=== PATIENT | male | born 1985 | race African-American/Black ===

== ENCOUNTER 2019-06-12 15:55 | Inpatient (IN) | payer OTHER ==
[2019-06-12 20:26] VITALS: BMI 28.2
--- NOTE | 2019-06-12 22:47 | HP ---
CIWA Score Nausea/Vomitin Muscle Tremors: 1-None Visible, but [place] Anxiety: 4-Mod. Anxious/Guarded Agitation: 4-Moderately Restless Paroxysmal Sweats: 3 Orientation: 2-Disoriented Date<2 days Tacttile Disturbances: 3-Moderate Itch/Numb/Burn Auditory Disturbances: 1-Very Mild Visual Disturbances: 1-Very Mild Sensitivity Headache: 3-Moderate CIWA-Ar Total Score: 27 - Admission Criteria OASAS Guidelines: Admission for Medically Managed Detox: Requires at least one of the followin. CIWA greater than 12 2. Seizures within the past 24 hours 3. Delirium tremens within the past 24 hours 4. Hallucinations within the past 24 hours 5. Acute intervention needed for co occurring medical disorder 6. Acute intervention needed for co occurring psychiatric disorder 7. Severe withdrawal that cannot be handled at a lower level of care (continued vomiting, continued diarrhea, abnormal vital signs) requiring intravenous medication and/or fluids 8. Patient presents the following: CIWA greater than 12 Admission Criteria Met: Admission criteria met Admission ROS [facility] Chief Complaint: C/O WITHDRAWAL SX'S Allergies/Adverse Reactions: Allergies Allergy/AdvReac Type Severity Reaction Status Date / Time No Known Allergies Allergy Verified 06/12/19 20:15 History of Present Illness: 33 Y.O. MALE WITH ALCOHOLISM HERE FOR DETOX. CLIENT IS REFERRED BY [facility]. PRESENTS WITH C/O WITHDRAWAL SX'S. 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 REPORTS DAILY INTAKE OF ALCOHOL. LAST USE 2 DAYS AGO. REPORTS HE ALSO SUFFERED A SEIZURE 2 DAYS AGO- WITNESSED BY ON LOOKERS. EMS CALLED BY BYSTANDERS BUT PATIENT STATES HE LEFT THE SCENE ONCE HE REALIZED WHAT HAPPENED. HE STATES THIS WAS HIS FIRST SEIZURE. ALSO REPORTS HX/O NOSE BLEEDS. DID NOT F/U WITH MEDICAL. [facility] ALCOHOL HX/O SINCE THE AGE OF 17. DENIES ANY SIGNIFICANT PERIOD OF CLEAN TIME. +WITHDRAWAL SZ, BLACK OUTS, AVH WHEN INTOXICATED. PRESENTLY DENIES SI/HI/AVH. LIVE IN [facility] RESIDENTIAL, UNEMPLOYED, DENIES LEGALS Exam Limitations: No Limitations - Ebola screening Have you traveled outside of the country in the last 21 days: No Have you had contact with anyone from an Ebola affected area: No Have you been sick,other than usual withdrawal symptoms: No Do you have a fever: No - Review of Systems Constitutional: Chills, Loss of Appetite, Night Sweats, Changes in sleep EENT: reports: Dental Problems (GUM AND DENTAL PAIN) Respiratory: reports: No Symptoms reported Cardiac: reports: No Symptoms Reported GI: reports: Nausea, Poor Appetite, Poor Fluid Intake, Vomiting, Abdominal cramping : reports: No Symptoms Reported Musculoskeletal: reports: Back Pain, Joint Pain, Neck Pain Integumentary: reports: No Symptoms Reported Neuro: reports: Headache, Seizure, Tremors (FELT) Endocrine: reports: No Symptoms Reported Hematology: reports: No Symptoms Reported Psychiatric: reports: Orientated x3, Agitated (IRRITABLE), Anxious, Depressed ( DENIES SI) Other Systems: Reviewed and Negative Patient History - Patient Medical History Hx Anemia: No Hx Asthma: No Hx Chronic Obstructive Pulmonary Disease (COPD): No Hx Cancer: No Hx Cardiac Disorders: No Hx Congestive Heart Failure: No Hx Hypertension: Yes (NON COMPLAINT WITH MEDS) Hx Hypercholesterolemia: No Hx Pacemaker: No HX Cerebrovascular Accident: No Hx Seizures: Yes (LAST EPISODE 2 DAYS AGO) Hx Dementia: No Hx Diabetes: No Hx Gastrointestinal Disorders: No Hx Liver Disease: No Hx Genitourinary Disorders: No Hx Sexually Transmitted Disorders: No Hx Renal Disease (ESRD): No Hx Thyroid Disease: No Hx Human Immunodeficiency Virus (HIV): No Hx Hepatitis C: No Hx Depression: Yes Hx Suicide Attempt: Yes (LAST YEAR BY HANGING SELF) Hx Bipolar Disorder: Yes Hx Schizophrenia: Yes (SCHIZOAFFECTIVE) Other Medical History: NON COMPLAINT WITH PSYCH MEDS - Patient Surgical History Past Surgical History: No - PPD History Previous Implant?: Yes Documented Results: Negative w/o proof Implanted On Prior [facility] Admission?: No PPD to be Administered?: Yes - Smoking Cessation Smoking history: Current every day smoker Have you smoked in the past 12 months: Yes Aproximately how many cigarettes per day: 10 Hx Chewing Tobacco Use: No Initiated information on smoking cessation: Yes 'Breaking Loose' booklet given: 06/12/19 - Substance & Tx. History Hx Alcohol Use: Yes Hx Substance Use: Yes Substance Use Type: Alcohol Hx Substance Use Treatment: No - Substances abused Alcohol Substance route: Oral Frequency: Daily Amount used: 2 pints of vodka, or 3 or 4 pints. Age of first use: 16 Date of last use: 06/10/19 Cocaine Frequency: 3-6 times per week Amount used: half a gram to a gram Age of first use: 18 Date of last use: 06/02/19 Marijuana/Hashish Substance route: Smoking Frequency: Daily Amount used: 1 stick Age of first use: 15 Date of last use: 06/10/19 Family Disease History - Family Disease History Family Disease History: Other: Mother ( BY SUICIDE), Sister ( BY SUICIDE) Admission Physical Exam [facility] - Vital Signs Vital Signs: Vital Signs - 24 hr 06/12/19 20:12 Temperature 97.7 F Pulse Rate 102 H Respiratory 18 Rate Blood Pressure 167/105 H - Physical General Appearance: Yes: Mild Distress, Irritable, Anxious HEENTM: Yes: EOMI, Normocephalic, Normal Voice, [place], Pharynx Normal Respiratory: Yes: Chest Non-Tender, Lungs Clear, Normal Breath Sounds, No Respiratory Distress, No Accessory Muscle Use Neck: Yes: No masses,lesions,Nodules, Supple, Trachea in good position Breast: Yes: Breast Exam Deferred Cardiology: Yes: Regular Rhythm, Regular Rate, S1, S2 Abdominal: Yes: Normal Bowel Sounds, Non Tender, Soft Genitourinary: Yes: Within Normal Limits Back: Yes: Normal Inspection Musculoskeletal: Yes: full range of Motion, Gait Steady Extremities: Yes: Normal Capillary Refill, Normal Range of Motion, Non-Tender Neurological: Yes: Fully Oriented, Alert, Motor Strength 5/5, Depressed Affect Integumentary: Yes: Dry, Warm Lymphatic: Yes: Within Normal Limits - Diagnostic (1) Alcohol dependence with uncomplicated withdrawal Current Visit: Yes Status: Acute (2) Cocaine abuse Current Visit: Yes Status: Chronic (3) HTN (hypertension) Current Visit: Yes Status: Chronic Qualifiers: Hypertension type: essential hypertension Qualified Code(s): I10 - Essential (primary) hypertension (4) Non compliance with medical treatment Current Visit: Yes Status: Suspected (5) Nicotine dependence Current Visit: Yes Status: Chronic Qualifiers: Nicotine product type: cigarettes Substance use status: uncomplicated Qualified Code(s): F17.210 - Nicotine dependence, cigarettes, uncomplicated (6) Homeless Current Visit: Yes Status: Suspected (7) Withdrawal seizures Current Visit: Yes Status: Acute Qualifiers: Complication of substance-induced condition: uncomplicated Qualified Code(s ): F19.230 - Other psychoactive substance dependence with withdrawal, uncomplicated; R56.9 - Unspecified convulsions (8) Psychiatric disorder Current Visit: Yes Status: Chronic Cleared for Admission S - Detox or Rehab [facility] Level of Care: Medically Managed Detox Regimen/Protocol: Librium Claeared for Rehab Admission: No Breathalyzer - Breathalyzer Breathalyzer: 0 Urine Drug Screen - Test Device Lot number: [id number] Expiration date: 03/15/21 - Control Is test valid?: Yes - Results Drug screen NEGATIVE: Yes Inpatient Rehab Admission - Rehab Decision to Admit Inpatient rehab admission?: No
[2019-06-12] MEDS ORDERED: DICYCLOMINE HCL 10 MG CAPSULE PO PRN (22:55)
[2019-06-12] MEDS ORDERED: BISMUTH SUBSALICYLATE 524 MG/30 ML UD PO PRN (22:55)
[2019-06-12] MEDS ORDERED: MAGNESIUM CITRATE 300 ML BOTTLE PO PRN (22:55)
[2019-06-12] MEDS ORDERED: MAGNESIUM HYDROX 2400MG/30ML ORAL SUSPENSION 30 ML CUP PO PRN (22:55)
[2019-06-12] MEDS ORDERED: hydrOXYzine HCL 25 MG TABLET (FP) PO PRN (22:55)
[2019-06-12] MEDS ORDERED: chlordiazePOXIDE HCL 25 MG CAPSULE PO PRN (22:55)
[2019-06-12] MEDS ORDERED: ACETAMINOPHEN 325 MG TABLET (FP) PO PRN ×2 (22:55)
[2019-06-12] MEDS ORDERED: guaiFENesin 200 MG/10 ML 10 ML UNIT-DOSE CUPS PO PRN (22:55)
[2019-06-12] MEDS ORDERED: MAG HYDROX/AL HYDROX/SIMETH 30 ML UNIT-DOSE CUP PO PRN (22:55)
[2019-06-12] MEDS ORDERED: IBUPROFEN 400 MG TABLET (FP) PO PRN (22:55)
[2019-06-12] MEDS ORDERED: MENTHOL/PHENOL 1 EACH UD MM PRN (22:55)
[2019-06-12] MEDS ORDERED: ONDANSETRON *ODT* 4 MG TABLET SL PRN (22:55)
[2019-06-12] MEDS ORDERED: P-EPHED 60MG/TRIPROLIDI 2.5MG TABLET PO PRN (22:55)
[2019-06-12] MEDS ORDERED: cloNIDine HCL 0.1 MG TABLET PO PRN (23:02)
[2019-06-13] MEDS: chlordiazePOXIDE HCL 25 MG CAPSULE PO SCH ×5 (00:34→22:40)
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
--- NOTE | 2019-06-13 10:34 | EKG ---
Test Reason : Blood Pressure : / mmHG Vent. Rate : 076 BPM Atrial Rate : 076 BPM P-R Int : 158 ms QRS Dur : 104 ms QT Int : 388 ms P-R-T Axes : 055 010 022 degrees QTc Int : 436 ms NORMAL SINUS RHYTHM NORMAL ECG NO PREVIOUS ECGS AVAILABLE Confirmed by JUNITO RUBIO, BRITTANY ([id number]) on 06/13/2019 10:33:47 AM Referred By: EDILMA MENESES Confirmed By:BRITTANY WILD MD
[2019-06-13] MEDS: PRENATAL VITAMINS W/ FOLIC ACID TABLET (FP) PO SCH (10:42)
[2019-06-13] MEDS: NICOTINE 14 MG/24 HOURS TOPICAL PATCH TD SCH (10:43)
[2019-06-13 11:43] LABS: HEMATOCRIT 48.4 % (35.4-49); HEMOGLOBIN 16.2 GM/dL (11.7-16.9); MCH 30.2 pg (25.7-33.7); MCHC 33.5 g/dl (32.0-35.9); MEAN CELL VOLUME 90.3 fl (80-96); MEAN PLT VOLUME 9.1 fl (7.5-11.1); PLATELET COUNT 157 K/MM3 (134-434); RBC 5.36 M/mm3 (4.00-5.60); WHITE BLOOD COUNT 5.4 K/mm3 (4.0-10.0)
--- NOTE | 2019-06-13 11:44 | PN ---
S CIWA - CIWA Score Nausea/Vomitin-No Nausea/No Vomiting Muscle Tremors: 4-Moderate,w/Arms Extend Anxiety: 4-Mod. Anxious/Guarded Agitation: 4-Moderately Restless Paroxysmal Sweats: No Perspiration Orientation: 0-Oriented Tacttile Disturbances: 0-None Auditory Disturbances: 0-None Visual Disturbances: 0-None Headache: 0-None Present CIWA-Ar Total Score: 12 BHS Progress Note (SOAP) Subjective: sweats shakes interrupted sleep body aches nausea Objective: 06/13/19 12:00 Vital Signs Temperature 98.4 F 06/13/19 09:38 Pulse Rate 89 06/13/19 09:38 Respiratory Rate 18 06/13/19 09:38 Blood Pressure 126/74 06/13/19 09:38 O2 Sat by Pulse Oximetry (%) Laboratory Tests 06/13/19 06/13/19 07:30 07:30 WBC 5.4 RBC 5.36 Hgb 16.2 Hct 48.4 MCV 90.3 MCH 30.2 MCHC 33.5 RDW 16.0 H Plt Count 157 MPV 9.1 Sodium 137 Potassium 3.6 Chloride 99 Carbon Dioxide 30 Anion Gap 8 BUN 9.1 Creatinine 0.8 Est GFR (CKD-EPI)AfAm 137.96 Est GFR (CKD-EPI)NonAf 119.03 Random Glucose 95 Calcium 9.8 Total Bilirubin 1.5 H AST 30 ALT 33 Alkaline Phosphatase 89 Total Protein 7.8 Albumin 3.8 labs noted aaox3 ambulating no acute distress Assessment: 06/13/19 12:00 withdrawal sx Plan: continue detox increase fluids
[2019-06-13 11:53] LABS: ALBUMIN 3.8 g/dl (3.4-5.0); BILIRUBIN,TOTAL 1.5 mg/dL (0.2-1); BLOOD UREA NITROGEN 9.1 mg/dL (7-18); CALCIUM 9.8 mg/dL (8.5-10.1); CREATININE 0.8 mg/dL (0.55-1.3); POTASSIUM 3.6 mmol/L (3.5-5.1); TOT PROT 7.8 g/dl (6.4-8.2)
[2019-06-13] MEDS: NICOTINE POLACRILEX 2 MG GUM BUC PRN ×2 (18:04→22:43)
[2019-06-13] MEDS: THIAMINE HCL 100 MG TABLET (FP) PO SCH (22:40)
[2019-06-14] MEDS: MELATONIN 5 MG TABLETS PO PRN ×2 (00:34→22:15)
[2019-06-14] MEDS: chlordiazePOXIDE HCL 25 MG CAPSULE PO SCH ×4 (05:40→22:15)
[2019-06-14] MEDS: NICOTINE POLACRILEX 2 MG GUM BUC PRN ×6 (05:41→23:02)
[2019-06-14] MEDS: NICOTINE 14 MG/24 HOURS TOPICAL PATCH TD SCH (10:12)
[2019-06-14] MEDS: PRENATAL VITAMINS W/ FOLIC ACID TABLET (FP) PO SCH (10:12)
--- NOTE | 2019-06-14 10:54 | PN ---
S CIWA - CIWA Score Nausea/Vomitin-No Nausea/No Vomiting Muscle Tremors: 3 Anxiety: 2 Agitation: 3 Paroxysmal Sweats: 2 Orientation: 0-Oriented Tacttile Disturbances: 0-None Auditory Disturbances: 0-None Visual Disturbances: 0-None Headache: 0-None Present CIWA-Ar Total Score: 10 S Progress Note (SOAP) Subjective: sweats interrupted sleep body aches Objective: 06/14/19 10:53 Vital Signs Temperature 97.2 F L 06/14/19 09:37 Pulse Rate 97 H 06/14/19 09:37 Respiratory Rate 17 06/14/19 09:37 Blood Pressure 143/96 06/14/19 09:37 O2 Sat by Pulse Oximetry (%) Laboratory Tests 06/13/19 06/13/19 06/13/19 07:30 07:30 07:30 WBC 5.4 RBC 5.36 Hgb 16.2 Hct 48.4 MCV 90.3 MCH 30.2 MCHC 33.5 RDW 16.0 H Plt Count 157 MPV 9.1 Sodium 137 Potassium 3.6 Chloride 99 Carbon Dioxide 30 Anion Gap 8 BUN 9.1 Creatinine 0.8 Est GFR (CKD-EPI)AfAm 137.96 Est GFR (CKD-EPI)NonAf 119.03 Random Glucose 95 Calcium 9.8 Total Bilirubin 1.5 H AST 30 ALT 33 Alkaline Phosphatase 89 Total Protein 7.8 Albumin 3.8 RPR Titer Nonreactive labs noted aaox3 ambulating no acute distress Assessment: 06/14/19 10:53 withdrawal sx Plan: continue detox increase fluids
[2019-06-14] MEDS: THIAMINE HCL 100 MG TABLET (FP) PO SCH (22:15)
[2019-06-15] MEDS ORDERED: chlordiazePOXIDE HCL 10 MG CAPSULE PO PRN
[2019-06-15] MEDS: NICOTINE POLACRILEX 2 MG GUM BUC PRN ×7 (02:49→23:06)
[2019-06-15] MEDS: chlordiazePOXIDE HCL 10 MG CAPSULE PO SCH ×4 (05:59→22:07)
[2019-06-15] MEDS: PRENATAL VITAMINS W/ FOLIC ACID TABLET (FP) PO SCH (10:06)
[2019-06-15] MEDS: NICOTINE 14 MG/24 HOURS TOPICAL PATCH TD SCH (10:06)
--- NOTE | 2019-06-15 10:34 | PN ---
[facility] CIWA - CIWA Score Nausea/Vomitin-No Nausea/No Vomiting Muscle Tremors: None Anxiety: 3 Agitation: 2 Paroxysmal Sweats: 3 Orientation: 0-Oriented Tacttile Disturbances: 0-None Auditory Disturbances: 0-None Visual Disturbances: 0-None Headache: 1-Very Mild CIWA-Ar Total Score: 9 S Progress Note (SOAP) Subjective: c/o sweats, headache, and anxiety. Objective: 06/15/19 10:33 Vital Signs 06/15/19 06/15/19 07:06 09:36 Temperature 97.7 F 97.5 F L Pulse Rate 81 86 Respiratory 17 17 Rate Blood Pressure 120/62 137/90 Lab Results WBC 5.4 K/mm3 (4.0-10.0) 06/13/19 07:30 RBC 5.36 M/mm3 (4.00-5.60) 06/13/19 07:30 Hgb 16.2 GM/dL (11.7-16.9) 06/13/19 07:30 Hct 48.4 % (35.4-49) 06/13/19 07:30 MCV 90.3 fl (80-96) 06/13/19 07:30 MCHC 33.5 g/dl (32.0-35.9) 06/13/19 07:30 RDW 16.0 % (11.9-15.9) H 06/13/19 07:30 Plt Count 157 K/MM3 (134-434) 06/13/19 07:30 Sodium 137 mmol/L (136-145) 06/13/19 07:30 Potassium 3.6 mmol/L (3.5-5.1) 06/13/19 07:30 Chloride 99 mmol/L (98-107) 06/13/19 07:30 Carbon Dioxide 30 mmol/L (21-32) 06/13/19 07:30 Anion Gap 8 MMOL/L (8-16) 06/13/19 07:30 BUN 9.1 mg/dL (7-18) 06/13/19 07:30 Creatinine 0.8 mg/dL (0.55-1.3) 06/13/19 07:30 Random Glucose 95 mg/dL (74-106) 06/13/19 07:30 Calcium 9.8 mg/dL (8.5-10.1) 06/13/19 07:30 Labs noted. Assessment: 06/15/19 10:33 AOX3, in no acute respiratory distress. Full ROM, ambulating in the unit. Withdrawal symptoms. Plan: continue detox.
[2019-06-15] MEDS: MELATONIN 5 MG TABLETS PO PRN (22:07)
[2019-06-15] MEDS: THIAMINE HCL 100 MG TABLET (FP) PO SCH (22:07)
[2019-06-16] MEDS: NICOTINE POLACRILEX 2 MG GUM BUC PRN ×2 (03:53→15:34)
[2019-06-16] MEDS: chlordiazePOXIDE HCL 10 MG CAPSULE PO SCH ×2 (05:41→17:01)
[2019-06-16] MEDS: PRENATAL VITAMINS W/ FOLIC ACID TABLET (FP) PO SCH (10:02)
[2019-06-16] MEDS: NICOTINE 14 MG/24 HOURS TOPICAL PATCH TD SCH (10:04)
[2019-06-16] MEDS: NICOTINE 21 MG/24 HOURS TOPICAL PATCH TD SCH (10:43)
[2019-06-16 12:18] LABS: URINE APPEARANCE CLEAR; URINE BILIRUBIN NEGATIVE (NEGATIVE); URINE COLOR YELLOW; URINE GLUCOSE (UA) NEGATIVE (NEGATIVE); URINE KETONE NEGATIVE (NEGATIVE); URINE LEUK ESTERASE NEGATIVE (NEGATIVE); URINE NITRITE NEGATIVE (NEGATIVE); URINE PROTEIN NEGATIVE (NEGATIVE); URINE UROBILINOGEN 0.2 mg/dL (0.2-1.0)
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
[2019-06-16] MEDS: THIAMINE HCL 100 MG TABLET (FP) PO SCH (21:55)
[2019-06-16] MEDS: MELATONIN 5 MG TABLETS PO PRN (21:55)
[2019-06-16] MEDS: METHOCARBAMOL 500 MG TABLET PO PRN (21:55)
[2019-06-17] MEDS ORDERED: chlordiazePOXIDE HCL 10 MG CAPSULE PO ONE (05:00)
[2019-06-17] MEDS: PRENATAL VITAMINS W/ FOLIC ACID TABLET (FP) PO SCH (10:12)
[2019-06-17] MEDS: NICOTINE 21 MG/24 HOURS TOPICAL PATCH TD SCH (10:12)
[2019-06-17] MEDS: NICOTINE POLACRILEX 2 MG GUM BUC PRN (10:12)
--- NOTE | 2019-06-17 11:28 | PN ---
S CIWA - CIWA Score Nausea/Vomitin-No Nausea/No Vomiting Muscle Tremors: None Anxiety: 1-Mildly Anxious Agitation: 0-Normal Activity Paroxysmal Sweats: No Perspiration Orientation: 0-Oriented Tacttile Disturbances: 0-None Auditory Disturbances: 0-None Visual Disturbances: 0-None Headache: 0-None Present CIWA-Ar Total Score: 1 BHS Progress Note (SOAP) Subjective: anxiety Objective: 06/17/19 11:25 Vital Signs Temperature 97.5 F L 06/17/19 10:00 Pulse Rate 101 H 06/17/19 10:00 Respiratory Rate 18 06/17/19 10:00 Blood Pressure 160/100 06/17/19 10:00 O2 Sat by Pulse Oximetry (%) aaox3 ambulating no acute distress pt will remain until tomorrow for a ride to [facility] inpatient rehab in the morning. today is a holiday and he may be at risk of relapse if he leaves today to go home. Assessment: 06/17/19 11:27 mild withdrawals Plan: d/c in am
[2019-06-17] MEDS: NICOTINE POLACRILEX 4 MG GUM BUC PRN ×4 (15:20→22:01)
[2019-06-17] MEDS: METHOCARBAMOL 500 MG TABLET PO PRN ×2 (17:34→23:59)
[2019-06-17] MEDS: THIAMINE HCL 100 MG TABLET (FP) PO SCH (22:01)
[2019-06-17] MEDS: MELATONIN 5 MG TABLETS PO PRN (22:02)
[2019-06-18] MEDS: NICOTINE POLACRILEX 4 MG GUM BUC PRN ×4 (05:16→12:40)
[2019-06-18] MEDS: METHOCARBAMOL 500 MG TABLET PO PRN ×2 (05:56→12:42)
--- NOTE | 2019-06-18 08:42 | DS ---
[facility] Detox Discharge Summary Admission Date: 06/12/19 Discharge Date: 06/18/19 - History Present History: Alcohol Dependence, Cannabis Dependence, Cocaine Dependence - Physical Exam Results Vital Signs: Vital Signs Temperature 96.6 F L 06/18/19 06:00 Pulse Rate 93 H 06/18/19 06:00 Respiratory Rate 18 06/18/19 06:00 Blood Pressure 121/89 06/18/19 06:00 O2 Sat by Pulse Oximetry (%) Pertinent Admission Physical Exam Findings: pt arrived in withdrawals Laboratory Tests 06/13/19 06/13/19 06/13/19 07:30 07:30 07:30 WBC 5.4 RBC 5.36 Hgb 16.2 Hct 48.4 MCV 90.3 MCH 30.2 MCHC 33.5 RDW 16.0 H Plt Count 157 MPV 9.1 Sodium 137 Potassium 3.6 Chloride 99 Carbon Dioxide 30 Anion Gap 8 BUN 9.1 Creatinine 0.8 Est GFR (CKD-EPI)AfAm 137.96 Est GFR (CKD-EPI)NonAf 119.03 Random Glucose 95 Calcium 9.8 Total Bilirubin 1.5 H AST 30 ALT 33 Alkaline Phosphatase 89 Total Protein 7.8 Albumin 3.8 Urine Color Urine Appearance Urine pH Ur Specific [place] Urine Protein Urine Glucose (UA) Urine Ketones Urine Blood Urine Nitrite Urine Bilirubin Urine Urobilinogen Ur Leukocyte Esterase RPR Titer TB (QFT) Incubation TB Test (QFT) Nil 0.09 TB Test (QFT) Mitogen >10.00 TB Test (QFT) Antigen 0.05 TB Test (QFT) Negative TB Positive Criteria 06/13/19 06/16/19 06/17/19 07:30 07:30 07:30 WBC RBC Hgb Hct MCV MCH MCHC RDW Plt Count MPV Sodium Potassium Chloride Carbon Dioxide Anion Gap BUN Creatinine Est GFR (CKD-EPI)AfAm Est GFR (CKD-EPI)NonAf Random Glucose Calcium Total Bilirubin 0.8 AST ALT Alkaline Phosphatase Total Protein Albumin Urine Color Yellow Urine Appearance Clear Urine pH 7.0 Ur Specific [place] 1.006 L Urine Protein Negative Urine Glucose (UA) Negative Urine Ketones Negative Urine Blood Negative Urine Nitrite Negative Urine Bilirubin Negative Urine Urobilinogen 0.2 Ur Leukocyte Esterase Negative RPR Titer Nonreactive TB (QFT) Incubation TB Test (QFT) Nil TB Test (QFT) Mitogen TB Test (QFT) Antigen TB Test (QFT) TB Positive Criteria today pt is aaox3 ambulating no acute distress no s/s of withdrawal - Treatment Hospital Course: Detox Protocol Followed, Detoxed Safely, Responded well, Discharged Condition Good, Rehab Referral Accepted Patient has Accepted a Rehab Referral to: referred to [facility] rehab - Medication Discharge Medications: Ambulatory Orders NK [No Known Home Medication] 06/12/19 - Diagnosis (1) Alcohol dependence with uncomplicated withdrawal Current Visit: Yes Status: Chronic (2) Cannabis dependence Current Visit: Yes Status: Chronic (3) Cocaine dependence Current Visit: Yes Status: Chronic Qualifiers: Substance use status: uncomplicated Qualified Code(s): F14.20 - Cocaine dependence, uncomplicated (4) Substance induced mood disorder Current Visit: Yes Status: Acute (5) Substance-induced sleep disorder Current Visit: Yes Status: Acute (6) HTN (hypertension) Current Visit: Yes Status: Chronic Qualifiers: Hypertension type: essential hypertension Qualified Code(s): I10 - Essential (primary) hypertension (7) Mood disorder Current Visit: Yes Status: Chronic (8) Nicotine dependence Current Visit: Yes Status: Chronic Qualifiers: Nicotine product type: cigarettes Substance use status: uncomplicated Qualified Code(s): F17.210 - Nicotine dependence, cigarettes, uncomplicated (9) Psychiatric disorder Current Visit: Yes Status: Chronic - AMA Did Patient Leave Against Medical Advice: No
[2019-06-18] MEDS: NICOTINE 21 MG/24 HOURS TOPICAL PATCH TD SCH (10:06)
[2019-06-18] MEDS: PRENATAL VITAMINS W/ FOLIC ACID TABLET (FP) PO SCH (10:06)
[2019-06-18 13:10] VITALS: BP 159/80; PULSE 104; TEMP 97.9
== END 2019-06-18 14:42 | disposition other institution (70) | DRG 774 ==
LOC: YASAS 15:55 → Y6N 23:30
PROVIDERS: ADMIT Surgery; ATTEND Surgery
PROC: HZ2ZZZZ Detoxification Services for Substance Abuse Treatment (ICD-10-PCS; principal; 2019-06-12)
DX: F10.230 Alcohol dependence with withdrawal, uncomplicated (principal); F14.20 Cocaine dependence, uncomplicated; F12.20 Cannabis dependence, uncomplicated; F17.210 Nicotine dependence, cigarettes, uncomplicated; F19.24 Other psychoactive substance dependence with psychoactive substance-induced mood disorder; F19.282 Other psychoactive substance dependence with psychoactive substance-induced sleep disorder; F39 Unspecified mood [affective] disorder; F09 Unspecified mental disorder due to known physiological condition; I10 Essential (primary) hypertension; E80.6 Other disorders of bilirubin metabolism; Z91.14 Patient's other noncompliance with medication regimen; Z86.69 Personal history of other diseases of the nervous system and sense organs; Z91.5 Personal history of self-harm; Z59.0 Homelessness
CPT/HCPCS: 36415; 80053; 81003; 82247; 85027; 86480; 86593; 93005; 93010; J0735

== ENCOUNTER 2019-06-18 14:58 | Inpatient (IN) | payer OTHER | END 2019-07-02 09:50 | disposition home or self-care (01) | LOC: YASAS 14:58 → Y5N 14:59 ==